=== PATIENT | male | born 1955 | race Caucasian/White ===

== ENCOUNTER 2023-07-15 06:38 | Inpatient (IN) | payer OTHER, SELFPAY ==
[2023-07-09 07:59] VITALS: BMI 34.5
[2023-07-15] VITALS (14 sets, daily range): BP systolic 113–157; BP diastolic 66–92; PULSE 75–92; RESP 9–18; TEMP 36.2–37.9; O2SAT 90–98; BMI 34.5
[2023-07-15] MEDS: LACTATED RINGERS 1,000 ML 42 ML IV ×2 (07:10→09:49)
--- NOTE | 2023-07-15 07:40 | PM.PREOP ---
Pre-operative Note Interval Note History & Physical reviewed/Exam performed by Physician: Yes Changes to H&P: No
[2023-07-15] MEDS: CEFAZOLIN 2 GM/100 ML PREMIX 100 ML IV ×3 (07:51→23:37)
--- NOTE | 2023-07-15 08:30 | SUR.OPER ---
Supine, head on gel donut. Arms padded with gel pads, tucked at sides, towel roll under shoulders. Safety belt at thigh. Legs uncrossed.Tape over legs.
[2023-07-15] MEDS: BUPIVACAINE 0.25% (PF) 60 ML, EPINEPHrine 0.15 MG INJ (08:46)
--- NOTE | 2023-07-15 10:47 | DI.RAD.S_ITS ---
PROCEDURE: XR CERVICAL SPINE 2V OR 3V INDICATIONS: C 4-5, C 5-6 ACDF TECHNIQUE: 2 operative C-arm view(s) of the cervical spine were acquired. COMPARISON: [facility], MR, MR CERVICAL SPINE WITHOUT CONTRAST, 05/29/2023, 10:20. FINDINGS: Operative C-arm imaging was utilized during ACDF at C4-C6 using anterior plate and screw fixation and interbody spacer material. No radiographic evidence of complications. IMPRESSION: Operative imaging utilized during cervical ACDF. Dictated by: Orville Hodge M.D. on 07/15/2023 at 14:18 Approved by: Orville Hodge M.D. on 07/15/2023 at 14:20
--- NOTE | 2023-07-15 11:10 | P.OP_ITS ---
Operative Date/Time/Diagnoses Date of procedure: 07/15/23 Time of procedure: 07:40 Pre-op diagnosis: 1. C4-5, C5-6 spinal stenosis 2. 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 C4-5, C5-6 anterior cervical diskectomy and fusion 2. C4-5, C5-6 anterior interbody cage placement 3. C4-5, C5-6 anterior instrumentation with plate and screw placement in C4, C5, C6 vertebrae 4. Utilization of microsurgical technique and operating microscope Same procedure as scheduled: Yes Indications: Patient has been having chronic neck pain and worsening cervical radiculopathy. Patient failed multiple conservative management with worsening pain weakness and numbness in his right upper extremity correlating with MRI showing severe C4-5 C5-6 right foraminal stenosis. Patient has been having difficulty performing activity of daily living. After discussing risks benefits of treatment options, patient elected proceed with surgery. Oracle Database Consultant: Marco Hudson Click Yes if Unassisted: No Anesthesia Type: General Operative Notes Closure Type: primary Specimen(s): none sent Prosthetic devices, grafts, tissues, transplants, or devices: Globus Extend Plate, Hedron C cages Estimated Blood Loss (mL): 5 Blood products transfused: none Procedure in detail: Patient was seen in the preoperative area. Risks and benefits of the surgery was discussed with the patient. Operative consent was obtained and placed in the chart. Patient was then taken to the operative room. Prophylactic antibiotic was given less than 0.5 hr prior to skin incision. General anesthesia was administered. Patient was placed into a supine position on her radiolucent table. Bilateral shoulders were taped down to allow proper C-arm imaging. Anterior cervical area was prepped and draped in a sterile fashion. Time-out was performed at this time. Using lateral C-arm imaging, the level between C4 and C6 was identified and marked on patient's neck. A oblique incision from midline towards medial border of sternocleidomastoid muscle was made. The platysma muscle was incised in line with skin incision. Metzenbaum scissor was used to develop the plane between the medial border of sternocleidomastoid d and the strap muscles medially. The carotid sheath and its contents were identified and protected behind the hand- held retractor during the entire case. The plane between the carotid sheath and strap muscles was developed with Metzenbaum scissors. Dissection was made down to the level of the anterior cervical fascia. Longus colli muscle was incised on the anterior aspect of vertebral bodies bilaterally from C4-C6. Spinal needle was placed into the C5-6 disc space and confirmed with lateral C-arm imaging. Using microsurgical technique and operative microscope, anterior cervical diskectomy was performed at C4-5 and C5-6 level. This was done by removing the disc material, removing the anterior and posterior osteophytes posterior longitudinal ligaments along with performing bilateral foraminotomies at both le vels. Patient was found to have moderate central and severe foraminal stenosis at both levels. Patient's stenosis was fully decompressed after decompression was completed. After the diskectomy was completed, 2 anterior interbody cages were obtained. The cages were packed with DBM bone grafting material. One cage each along with the bone grafting material was then packed into the interbody spaces from C4-C6 with one cage into each interbody level. After the cages were placed, the anterior cervical plate was stabilized to the C4-6 vertebrae using 2 screws at each each level. Total 6 screws were placed. After confirming placement of the hardware with AP and lateral C-arm imaging, the screws were locked into the plate using the locking mechanism and torque limiting screwdriver. After the hardware was placed and confirmed with AP and lateral C-arm imaging, the wound was irrigated with sterile normal saline. The platysma muscle and the subcutaneous tissue was closed with 2-0 Vicryl. The skin was closed with 4-0 Monocryl and Steri-Strips. Patient tolerated the procedure well. Patient was transferred recovery room in stable condition. There were no complications. Complications: none Post-operative Condition: stable Disposition: PACU Plan for aftercare: Admit to inpatient hospital
[2023-07-15] MEDS: HYDROMORPHONE 1 MG INJ IV ×3 (11:13→11:37)
[2023-07-15] MEDS: hydrOXYzine 50 MG/ML INJ 25 MG IM (11:16)
--- NOTE | 2023-07-15 11:29 | SUR.PHASEI ---
1104 - Received to PACU after general anesthesia. Airway patent, self maintained. Report from SHELBY Eugene and TREVON Ponce.
--- NOTE | 2023-07-15 11:53 | SUR.PHASEI ---
Report called to Rhonda.
--- NOTE | 2023-07-15 12:00 | SUR.PHASEI ---
Patient transferred to the floor by Magdiel Gates, with belongings bag.
[2023-07-15] MEDS: LACTATED RINGERS 1,000 ML 125 ML IV ×2 (13:00→21:50)
[2023-07-15] MEDS: OXYCODONE IR 5 MG TABLET PO ×3 (13:38→20:50)
--- NOTE | 2023-07-15 15:25 | PC.NURSE ---
Patient just worked with physical therapy and ambulated in the halls. Given 1 oxycodone and helpful for discomfort to anterior neck. Patient has a gauze with tegaderm to his anterior neck and a neck brace in place for protection. He has a friend that was visiting him. LR infusing at 125cc/hr and patient is doing well.
--- NOTE | 2023-07-15 15:26 | PT.IIE ---
Current Diagnoses Spinal stenosis, cervical region (07/15/23) Surgery Performed Operation Date: 07/15/23 07:45 Actual Procedures p C4-5, C5-6 ACDF with anterior instrumentation - Melvina Rodriguez MD Surgical History (Last Updated 07/09/23 @ 09:24 by Shannon Lennon, RN) History of mandibular surgery History of orthopedic surgery (2017) History of orthopedic surgery (2018) History of total right knee replacement (09/2014) S/P epidural steroid injection Medical History (Last Updated 07/09/23 @ 09:38 by Shannon Lennon RN) Acid reflux CAD (coronary artery disease) Cervical spinal stenosis Hearing loss History of cardioversion (12/2022) MEI (obstructive sleep apnea) PAF (paroxysmal atrial fibrillation) (~2017) Presence of Watchman left atrial appendage closure device (~06/2021) Seasonal allergies Thrombophilia Physical Therapy Inpatient Evaluation/Re-Eval M1 PT/OT-IP Prior Functional Status Start: 07/15/23 12:19 Freq: NEEDED Status: Active Protocol: Document 07/15/23 15:26 AW (Rec: 07/15/23 16:02 AW [id number]) Medical Review Prior Functional Status Medical History Reviewed No Communication No known deficits. Mobility and Gait Independent. Walks with dog 4- 5 miles per day. Activities of Daily Living and IADL's Independent Social History Household Members spouse Living Arrangements House Number of Floors (Floors) Two Floors Number of Stairs To Enter/Railing? 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 Spouse's sister will be available for 04/03 assist for a few weeks when pt goes home. M2 PT-IP Current Condition Start: 07/15/23 12:19 Freq: NEEDED Status: Active Protocol: Document 07/15/23 15:26 AW (Rec: 07/15/23 16:02 AW [id number]) Physical Therapy Current Condition Current Condition Evaluation Date 07/15/23 Treatment Diagnosis s/p C4-6 ACDF; impaired R knee ROM; impaired gait Onset Date 07/15/23 M3 PT-IP Subjective Start: 07/15/23 12:19 Freq: NEEDED Status: Active Protocol: Document 07/15/23 15:26 AW (Rec: 07/15/23 16:02 AW [id number]) Subjective Physical Therapy Visit Type Type Initial Evaluation Visit Start Time 14:58 Visit Stop Time 14:26 Total Visit Minutes 28 Physical Therapy Visit Comments Patient Comments Pt is willing to participate with PT Patient Goals Return home and back to regular activity such as walking his dog as soon as possible. Therapy Pain Assessment Pain When Pain Assessed During Mobility Pain Present Pain Present Pain Reported Location posterior neck Intensity 6 Scale Used Numeric (0 - 10) Pain Management Techniques Apply Cold,Timing of Activity with Medications M4 PT-IP Mobility and Gait Start: 07/15/23 12:19 Freq: NEEDED Status: Active Protocol: Document 07/15/23 15:26 AW (Rec: 07/15/23 16:02 AW [id number]) PT-Bed Mobility Assessment Supine to Sit Supine to Sit Independent Sit to Supine Sit to Supine Independent PT-Transfer Assessment Sit to and From Stand Sit to and from Stand Independent,Use of Upper Extremities Equipment Transfer Assistive Device None Orthotic/Prosthetic Devices or Brace: Yes Transfers Transfer Destination Bed,Chair Transfer Technique Stand Step Pivot Transfer Ability Level of Assist Independent Comments Mobility Comments Pt was found resting in bed. BP 108/87 HR 99 SpO2 93% on room air. PT educated pt on post op precautions and donning/doffing soft collar which is ordered for comfort. Pt transitions to sitting EOB and dons his own shorts before standing as PT cues cervical posture to limit excessive flexion and pt has good return demo. Pt stands and ambulates to the toilet, voiding in standing. He then walks 220 feet (first 100 feet with IV pole and remaining distance without AD). Pt has good stability in spite of R knee ROM limitations (see objective findings below). On return to the room, pt transfers to bedside chair and then back to bed without assist. Pt is left with call light handy, all needs in reach. BP 126/81 HR 102 following mobility. Gait Assessment Gait Gait Assistance Required: Independent Distance (Feet) 220 Assistive Devices Assistive Device None Orthotic/Prosthetic Devices or Brace: Yes Gait Deviations General Gait Pattern Lateral Trunk Lean,Wide Based Gait Factors Limiting Gait Function Factors Limiting Gait Function Limited Range of Motion Comments Gait Comments Pt's right knee flexes only to 10 degrees. Pt compensates well and gait is stable. Stair Climbing Assessment Evaluation Level of Assist On Stairs Independent Devices Stair Climbing Assistive Devices None Technique/Endurance Stair Climbing Direction Ascend and Descend Stair Climbing Technique Step to Step Number of Steps Climbed 3 Query Text: Stair Climbing Set # Repetitions (reps) 2 PT-Balance Assessment Sitting Balance and Reactions Static Sitting Balance Ability Normal Dynamic Sitting Balance Ability Normal Standing Balance and Reactions Static Standing Balance Ability Good Dynamic Standing Balance Ability Good Device Used no AD M5 PT-IP Objective Assessments Start: 07/15/23 12:19 Freq: NEEDED Status: Active Protocol: Document 07/15/23 15:26 AW (Rec: 07/15/23 16:02 AW [id number]) Orientation Orientation/Cognition Level of Alertness Alert Orientation Name,Day of Week,Place, Situation Language Function Ability No Deficits Noted Safety Awareness Understands Safety Issues Memory Description No Deficits Noted Gross Range of Motion Upper Extremity ROM Assessment Within Functional Limits Lower Extremity ROM Assessment Right Impaired Impairments R knee 0-10 only secondary to complicated orthopedic history including TKA and multiple infections/revisions. Strength Upper Extremity Strength Assessment Within Functional Limits Lower Extremity Strength Assessment Right Impaired Comments Strength Comments Pt has functional strength BLE but limited knee flexion RLE. Sensation Assessment Sensation Gross Sensation WNL Comments Sensation Comments Denies paresthesias in BUE. M6 PT-IP Treatment Start: 07/15/23 12:19 Freq: NEEDED Status: Active Protocol: Document 07/15/23 15:26 AW (Rec: 07/15/23 16:02 AW [id number]) Physical Therapy Treatment Education Brace Education [place],Patient Equipment Issued Equipment Type and Company Pt able to independently don and doff soft collar. Other Treatments Other Treatment Performed Education on soft collar limiting lower field of vision and need to compensate, especially on stairs. M7 PT-IP Assessment and Plan Start: 07/15/23 12:19 Freq: NEEDED Status: Active Protocol: Document 07/15/23 15:26 AW (Rec: 07/15/23 16:02 AW [id number]) PT Summary Assessment and Plan Potential Status of Condition at Evaluation Evolving Summary Impairments Pain,ROM Assessment Summary Ben Polanco is a 68 yo man seen for PT evaluation in the immediate postoperative setting following C4-5 C5-6 ACDF. PMH includes atrial fibrillation s/p Watchman implant, chronic low back pain , bilateral SI joint fusion, and R TKA complicated by multiple infections and revisions. PLOF: Pt is independent in all regards. He is primary caregiver for his spouse who has Parkinson's disease with Lewy body dementia. CLOF: Pt understands his postoperative precautions and demonstrates independent mobility in all aspects. He is able to manage his soft cervical collar without assist . He will have family assist at home for the next few weeks . PT recommends discharge home with such assist. No further acute PT needs. Frequency of Treatment Frequency Of Treatment Discharge Precautions Cervical Spine Precautions Soft Collar for Comfort,No Heavy Lifting,Log Roll Brace soft collar Recommendations To Nursing Amount of Assist Needed Standby Assistance Discharge Recommendations PT Discharge Recommendations Home with Assistance Transportation Needs at Discharge Private Vehicle
[2023-07-15] MEDS: ATORVASTATIN 20 MG TABLET 40 MG PO (16:48)
[2023-07-15] MEDS: ACETAMINOPHEN 325 MG TABLET 650 MG PO (19:31)
[2023-07-15] MEDS: hydrOXYzine pamoate 25 MG CAPSULE PO (20:50)
[2023-07-15] MEDS: SENNOSIDES 8.6 MG TABLET 17.2 MG PO (20:50)
[2023-07-15] MEDS: MONTELUKAST 10 MG TABLET PO (20:50)
[2023-07-15] MEDS: DOCUSATE 100 MG CAPSULE PO (20:50)
[2023-07-15] MEDS: HYDROMORPHONE 0.5 MG INJ IV (21:37)
[2023-07-16] VITALS: BP 114/57; PULSE 76; RESP 17; TEMP 36.7; O2SAT 94
[2023-07-16] MEDS: BENZOCAINE/MENTHOL 1 LOZ PKT 1 EACH PO ×2 (00:35→04:57)
[2023-07-16] MEDS: OXYCODONE IR 5 MG TABLET PO ×4 (00:54→10:07)
[2023-07-16] MEDS: hydrOXYzine pamoate 25 MG CAPSULE PO (03:06)
[2023-07-16] MEDS: ACETAMINOPHEN 325 MG TABLET 650 MG PO (03:06)
[2023-07-16] MEDS: HYDROMORPHONE 0.5 MG INJ IV (03:06)
[2023-07-16 04:51] VITALS: BP 118/60; PULSE 84; RESP 17; TEMP 37; O2SAT 97
[2023-07-16] MEDS: PANTOPRAZOLE DR 20 MG TABLET PO (05:07)
[2023-07-16] MEDS: LACTATED RINGERS 1,000 ML 125 ML IV (06:15)
--- NOTE | 2023-07-16 07:48 | PM.DS.1 ---
History of Present Illness History of Present Illness Date Patient Seen: 07/16/23 Time Patient Seen: 07:49 Chief complaint: Neck pain Narrative: Neck pain has been [id number]. Denies fever or chills. Patient able have some dinner last night. Patient drinking liquids without difficulty. No shortness of breath or chest pain. Discharge Providers Provider Date of admission: 07/15/23 06:38 Discharge Date: 07/16/23 Consults: 07/15/23 12:01 Consult to Occupational Therapy Evaluate & Treat Comment: Physician Instructions: Evaluate and treat Consult to Physical Therapy Evaluate & Treat Comment: Physician Instructions: Evaluate and Treat Discharge provider: Kalpesh Barroso PA-C Summary Hospital Course Discharge Diagnosis: 1. C4-5, C5-6 spinal stenosis 2. 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 C4-5, C5-6 anterior cervical diskectomy and fusion 2. C4-5, C5-6 anterior interbody cage placement 3. C4-5, C5-6 anterior instrumentation with plate and screw placement in C4, C5, C6 vertebrae 4. Utilization of microsurgical technique and operating microscope Same procedure as scheduled: Yes Indications: Patient has been having chronic neck pain and worsening cervical radiculopathy. Patient failed multiple conservative management with worsening pain weakness and numbness in his right upper extremity correlating with MRI showing severe C4-5 C5-6 right foraminal stenosis. Patient has been having difficulty performing activity of daily living. After discussing risks benefits of treatment options, patient elected proceed with surgery. Cupola Liner Helper: Marco Hudson Click Yes if Unassisted: No Anesthesia Type: General Operative Notes Closure Type: primary Specimen(s): none sent Prosthetic devices, grafts, tissues, transplants, or devices: Globus Extend Plate, Hedron C cages Estimated Blood Loss (mL): 5 Blood products transfused: none Patient admitted to the hospital for the above-mentioned procedure. Patient consented to the same. Patient underwent cervical fusion on July 15, 2023. Patient back in his room recovering well as in stable condition. Patient will work with physical therapy. Multimodal pain management. Discharge home today after physical therapy if safe for home environment. Status at Discharge Cognitive/behavioral status at discharge: at baseline, oriented Functional status at discharge: independent ambulation Overall status at discharge: patient is progressing back to baseline Exam Vital Signs (past 8 hours): - 07/16/23 00:00 07/16/23 04:51 Temperature 98.1 F 98.6 F Pulse Rate 76 84 Respiratory Rate 17 17 Blood Pressure 114/57 L 118/60 Pulse Oximetry 94 97 Oxygen Flow Rate 0 0 Oxygen Delivery Method Room Air Oxygen Flow Rate 0 Narrative Exam Narrative: 68-year-old male resting comfortably bed no apparent distress. Soft collar in place. Dressing is Clean, dry, intact.. Motor functions intact bilateral upper extremities. Const General: cooperative and comfortable Nutritional Appearance: average body habitus Orientation: alert Resp Effort & Inspection: normal respiratory effort and able to speak in complete sentences [facility] Medical History PAF (paroxysmal atrial fibrillation) (~2017) CAD (coronary artery disease) Thrombophilia Cervical spinal stenosis Acid reflux Seasonal allergies MEI (obstructive sleep apnea) Hearing loss History of cardioversion (12/2022) Presence of Watchman left atrial appendage closure device (~06/2021) Surgical History History of mandibular surgery History of total right knee replacement (09/2014) S/P epidural steroid injection History of orthopedic surgery (2018) History of orthopedic surgery (2016) Social History household members: spouse Smoking Status: Never smoker alcohol intake: former Discharge Assessment & Plan Assessment and Plan Assessment: Patient progressing as expected status post cervical fusion Plan of Treatment: Multimodal pain management Soft collar for comfort Limit bending, twisting, lifting Follow up in Orthopedics 2 weeks Discharge home today in stable condition after physical therapy if safe for home environment. Discharge Plan Discharge orders & Medications Discharge Orders: Discharge (Order); Ordered 07/16/23 Ordered By: Kalpesh Barroso Prescriptions: New acetaminophen 325 mg Tablet 650 mg PO Q6H PRN (Reason: Fever/Mild Pain (1-3)) Qty: 60 0RF oxycodone 5 mg Tablet 5 mg PO Q3H PRN (Reason: Pain, Moderate (4-6)) Qty: 40 0RF Rx Instructions: Take 5-10 mg every 3 hours as needed for pain hydroxyzine pamoate 25 mg Capsule 25 mg PO Q4HR PRN (Reason: Nausea And Vomiting) Qty: 20 0RF Continued atorvastatin 40 mg Tablet 40 mg PO QPM metoprolol succinate 50 mg Tablet Extended Release 24 Hr 50 mg PO DAILY aspirin 81 mg Tablet,Delayed Release (Dr/Ec) 81 mg PO DAILY cephalexin 500 mg Capsule 500 mg PO BID ibuprofen 200 mg Tablet 800 mg PO DAILY PRN (Reason: Pain) montelukast 10 mg Tablet 10 mg PO BEDTIME omeprazole 20 mg Tablet,Delayed Release (Dr/Ec) 20 mg PO DAILY Discontinued acetaminophen 500 mg Tablet 1,000 mg PO DAILY PRN (Reason: Pain) oxycodone 5 mg Tablet 5 mg PO BID Follow up/Referrals: Melvina Rodriguez MD [Physician] - (2 weeks as scheduled) Diet/Activity/Treatments Diet: Diet as Tolerated Activity: Limit bending, twisting, lifting, soft collar for comfort Skin/Wound/Dressing Care Report to your healthcare provider any signs of infection, such as:: chills, fever, night sweats, increased pain, unusual drainage and unusual redness Dressing: Keep dressing clean and dry Visit Report/Discharge Packet Instructions: DI for Prescription Opioid Use Stand Alone Forms: Patient Portal/API, Stroke Signs & Symptoms, Surgery Discharge Quality VTE Deep Vein Thrombosis/Pulmonary Embolism Present on Admission: No
[2023-07-16 08:00] VITALS: BP 127/75; PULSE 72; RESP 16; TEMP 36.2; O2SAT 98
[2023-07-16] MEDS: DOCUSATE 100 MG CAPSULE PO (08:19)
[2023-07-16 08:20] VITALS: BP 127/75; PULSE 92
[2023-07-16] MEDS: METOPROLOL ER 50 MG TABLET PO (08:20)
--- NOTE | 2023-07-16 08:55 | OT.IP.EVAL ---
Current Diagnoses Spinal stenosis, cervical region (07/15/23) Surgery Performed Operation Date: 07/15/23 07:45 Actual Procedures p C4-5, C5-6 ACDF with anterior instrumentation - Melvina Rodriguez MD Past Medical History (Last Reviewed 07/16/23 @ 07:51 by Kalpesh Barroso PA-C) Acid reflux CAD (coronary artery disease) Cervical spinal stenosis Hearing loss History of cardioversion (12/2022) MEI (obstructive sleep apnea) PAF (paroxysmal atrial fibrillation) (~2017) Presence of Watchman left atrial appendage closure device (~06/2021) Seasonal allergies Thrombophilia Surgical History (Last Reviewed 07/16/23 @ 07:51 by Kalpesh Barroso PA-C) History of mandibular surgery History of orthopedic surgery (2016) History of orthopedic surgery (2017) History of total right knee replacement (09/2014) S/P epidural steroid injection Occupational Therapy Inpatient Evaluation/Re-Eval M1 PT/OT-IP Prior Functional Status Start: 07/16/23 09:44 Freq: NEEDED Status: Active Protocol: Document 07/16/23 08:45 [facility] (Rec: 07/16/23 09:54 [facility] [id number]) Medical Review Prior Functional Status Medical History Reviewed No Communication No known deficits. Mobility and Gait Independent. Walks with dog 4- 5 miles per day. Activities of Daily Living and IADL's Independent Social History Household Members spouse Living Arrangements House Number of Floors (Floors) Two Floors Number of Stairs To Enter/Railing? 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 Spouse's sister will be available for 24/ assist for a few weeks when pt goes home. M2 OT-IP Current Condition Start: 07/16/23 09:44 Freq: Status: Active Protocol: Document 07/16/23 08:45 [facility] (Rec: 07/16/23 09:54 [facility] [id number]) Occupational Therapy Current Condition Current Condition Evaluation Date 07/16/23 Treatment Diagnosis S/P C4-5, C5-6 ACDF Diagnosis Onset Date 07/15/23 Post Operative Precautions Cervical Spine Precautions Soft Collar for Comfort,Soft Collar at all Times,Rigid Collar,No Heavy Lifting,Log Roll M3 OT- IP Subjective and Pain Start: 07/16/23 09:44 Freq: Status: Active Protocol: Document 07/16/23 08:45 [facility] (Rec: 07/16/23 09:54 [facility] [id number]) OT- Subjective Occupational Therapy Visit Type Type Initial Evaluation Visit Start Time 08:45 Visit Stop Time 09:07 Total Visit Minutes 22 Occupational Therapy Visit Comments Patient Comments Pt agreed to get dressed. Patient/Caregiver Goals TO go home. OT Pain Assessment Pain When Pain Assessed At Rest Pain Present Pain Present Pain Reported Location posterior neck Intensity 6 Scale Used Numeric (0 - 10) M4 OT- IP ADL's Start: 07/16/23 09:44 Freq: Status: Active Protocol: Document 07/16/23 08:45 [facility] (Rec: 07/16/23 09:54 [facility] [id number]) OT [id number] Comments OT Self-Feeding Comments Able to go over suggestions for eating and position while eating with the pt. OT ADL-Grooming General Evaluation Grooming Ability Independent OT ADL-Oral Care General Eval Oral Care Ability Independent Comments Oral Care Comments Educated to spit into a cup or hinge at his hips for oral care needs. OT ADL-Dressing General Eval Lower Body Dressing Ability Standby Assistance,Maximum Assistance Areas Needing Assistance Socks,Shoes Assistive Devices Dressing Assistive Devices Risk Investigator,Sock Aid Comments OT Dressing Comments Pt able to minimally bend at his right knee and was shown and practiced use of sock aid and orange picking supervisor for LB dressing needs. OT ADL-Toileting Comments OT Toileting Comments Pt states has been using the toilet. OT ADL-Bathing Comments OT Bathing Comments Not performed. M5 OT- IP IADL's Start: 07/16/23 09:44 Freq: Status: Active Protocol: Document 07/16/23 08:45 [facility] (Rec: 07/16/23 09:54 [facility] [id number]) OT-Instrumental Activities of Daily Living Home Safety Awareness Awareness of Need for Assistance at Home Good Awareness Ability to Problem Solve Emergency Able to Problem Solve Situations Home Safety Comments Pt's sister in law to assist. Medication Management Medication Management No Deficits Identified Money Management Money Management Caregiver Provides Assistance Meal Preparation Meal Preparation Caregiver Provides Assist Splitting Machine Feeder Splitting Machine Feeder Caregiver Provides Assist M6 OT- IP Functional Cognition Start: 07/16/23 09:44 Freq: Status: Active Protocol: Document 07/16/23 08:45 [facility] (Rec: 07/16/23 09:54 [facility] [id number]) Cognitive Factors Limiting Selfcare Function Cognitive Ability Level of Alertness Alert Patient Orientation Name,Age,Birthday,Month,Date, Year,Day of Week,Place, Situation Attention Span Ability Capable of Focused Attention, Capable of Sustained Attention Ability to Follow Commands Able to Follow Multi-Step Commands Memory Description No Deficits Noted Safety Awareness No Deficits Noted Cognitive Comments Cognitive Assessment Comments Pt intact. OT- Vision and Hearing OT- Hearing Assessment OT- Hearing Assessment WFL OT- Vision Assessment Visual Acuity WFL M7 OT- IP Mobility and Balance Start: 07/16/23 09:44 Freq: Status: Active Protocol: Document 07/16/23 08:45 [facility] (Rec: 07/16/23 09:54 [facility] [id number]) OT- Bed Mobility Assessment Sit to Supine Sit to Supine Assist Independent OT-Transfer Assessment Sit to and From Stand Sit to and from Stand Independent Transfers Transfer Ability Independent Technique Transfer Destination Bed Transfer Technique Stand Step Pivot Devices Transfer Assistive Devices None Comments Mobility Comments Pt able to move independently in the room. OT- Balance Assessment Sitting Balance and Reactions Static Sitting Balance Ability Normal Dynamic Sitting Balance Ability Good Standing Balance and Reactions Static Standing Balance Ability Good Dynamic Standing Balance Ability Good M9 OT- IP Assessment and Plan Start: 07/16/23 09:44 Freq: Status: Active Protocol: Document 07/16/23 08:45 [facility] (Rec: 07/16/23 09:54 [facility] [id number]) OT Summary Assessment and Plan Potential Rehabilitation Potential Excellent Analytic Complexity at Evaluation Low Summary OT Impairments Pain,Dressing,Bathing Progress Towards Goals Progressing Toward Goals,Safe For Discharge Assessment Summary Pt low complexity and main barriers are pain and LB dressing due to limited bending of his right knee. Able to show pt use of orange picking supervisor and sock aid to assist for his needs. Pt's sister in law to assist as his has Parkinson's. Pt looking to go home today. Goals Dressing Goal Independent,Risk Investigator,Sock Aid Bathing Goal Independent Toilet Transfer Goal Independent Shower Transfer Goal Independent Days to Meet Goals 1 Frequency of Treatment Frequency Of Treatment Discharge Treatment Plan OT Treatment Plan ADL Training,Functional Mobility,Patient/Family Education,Discharge Planning Discharge Recommendations OT Discharge Recommendations Home with Assistance Home Equipment Needs sock aid, orange picking supervisor Transportation Needs at Discharge Private Vehicle
[2023-07-16 09:52] VITALS: BP 129/80; PULSE 80
--- NOTE | 2023-07-16 11:26 | PC.NURSE ---
Pt alert and oriented, tolerating post-op course, talking about d/c. Friend coming to drive pt home. Pain meds as needed, d/c instructions given. Iv d/c'd per nimesh.l
--- NOTE | 2023-07-16 16:01 | CM.DANOTE ---
Reviewed EMR and team rounds for pt's medical status and initial anticipated home medical needs. Pt had discharged prior to this [employer]'s ability to meet with him in person. Payor: [facility] Attending: Dr. Rodriguez Pt is a 68 year-old M with a hx of chronic neck pain and worsening cervical radiculopathy admitted on 07/15/23 for a planned cervical fusion surgery, post-op day 1. Per Ortho, pt is progressing back toward baseline, plan is d/c home today with Ortho f/u, family assistance. Pt is the primary cg for his who has Parkinson's and Lewy Body Dementia, her sister is here for the next 2-weeks in order to assist with caregiving needs for both of them for the next 2-weeks. No further DCP needs identified at this time. Discharge Planning/Care Management CM Discharge Assessment Start: 07/16/23 15:55 Freq: Status: Discharge Protocol: Document 07/16/23 15:56 [facility] (Rec: 07/16/23 16:01 [facility] [id number]) Discharge Planning Assessment Assigned Dish Person RUBIA Montaño Advance Directives? No History Provided By Medical Record Expected Length of Stay 1 Has Patient been admitted in last 30 No days? Prior Living Arrangements House Household Members spouse Type of transporation used prior to Drives own vehicle admit Independent with ADL's Yes Is patient alert and oriented? Yes Comment N/A Caregiver for Another Yes: Main cg for who has Parkinson's and Lewy Body Dementia. Comment No d/c needs identified at this time. Barriers to Discharge No Discharge Plan Home Transportation Arrangement Family Referrals Initiated None needed Comment Pt d/c'd prior to this [employer]'s ability to assess him in person. Review Status In Process Please Provide Date Initial DC 07/16/23 Assessment Was Performed Pre-Anesthesia Assessment Start: 07/09/23 07:59 Freq: Status: Discharge Protocol: Document 07/09/23 07:59 [facility] (Rec: 07/09/23 09:35 [facility] [id number]) Pre-Anesthesia Assessment Preferred Name Keith Patient Information Reviewed Via Phone Assessment Assessment Completed With Patient Diagnostic Results BMP/CMP,CBC,EKG Comment Outside labs/EKG scanned Primary Care Provider MD Sergey Seen Specialist in Last 12 Months Yes Specialist Seen Director [employer],Orthopedist Primary Language Korean Vice President Of Talent Management Required No Height 175.26 cm Weight 106.141 kg Body Mass Index (BMI) 34.5 Hearing Ability Hearing Impaired Visual Assist Magnifying Glass Dentition Type Partial- Upper Barriers to Learning None Hx Anesthesia Reactions No Hx Family Anesthesia Reaction No Hx Malignant Hyperthermia No Hx Blood Transfusions No Anesthesia Review Requested No 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 No Does patient have RICHARDSON/SOB No Hx Sleep Apnea Yes: Boarderline after weight loss, no CPAP Currently Taking a Beta [place] Yes: Metoprolol Hx Chest Pain No Hx SOB No Hx Syncope or Dizziness No Anti-Coagulant Therapy Yes: ASA 81mg daily-advised to hold 7 days per surgeon office Has a Director [employer] Services Yes: Last visit 03/29/23 Director [employer] name Dr. Aranda @ [facility] [phone] Cardiac Testing No Hx Pacemaker/ICD No Pacemaker Rep Required? No Cardiac Clearance Received Not Applicable Comment Watchman device implant Additional comment Cardiac records scanned, walks 5 miles daily Diet Type At Home Regular Dysphagia No Gastrointestinal Symptoms Reflux Chronic UTI No Urinary Catheter Present No Hx Urinary Self Catheterization No Diabetes No HgbA1C 5.4 Date 12/31/22 Hx Drug Resistant Organism No Presence of External or Internal Medical Yes: Cardiac watchman, knee Devices prosthesis, SI joint pins, right facial pins Received a COVID vaccine? Yes Received all doses? Yes Marital Status Lives With spouse Current Living Arrangements House Number of Floors (Floors) Two Floors Number of Stairs To Enter/Railing? 3 Support System Spouse Does the Patient Have Assistance After Yes Surgery Patient Discharge Plan Description Return Home Comment Pt advised 2 day length of stay per surgeon Feels Safe in Current Environment Yes Been Physically Hurt or Threatened By a No Person in Current Environment Do you have thoughts of harming yourself None or others? Are you currently considering suicide? No Do you have a plan to hurt yourself or No Plan others? Do You Have Any Spiritual Beliefs That No May Affect Your HC Choices? Do You Have Any Cultural Practices That No May Affect Your HC Choices? Comment Episcopal Who Can We Speak to About Patient's Care Family, friends Identifying Code for Release of Patient Declines to issue Information Health Care Proxy/Next of Kin Brina () Health Care Proxy Emergency Contact Name Brina () Emergency Contact Advance Directives? No Power of Conference Services Manager No PAC Instructions Medications to take/avoid, Nasal antibiotic,No ETOH/ petroleum product on skin DOS, NPO,Pre-surgical wash,Sensory aids,Sturdy shoes/comfortable clothes,Do not bring valuables and remove jewelry
== END 2023-07-16 10:25 | disposition home or self-care (01) | DRG 473 ==
PROVIDERS: Admitting Provider Orthopaedic Surgery Orthopaedic Surgery of the Spine; Referring Provider Orthopaedic Surgery Orthopaedic Surgery of the Spine; Visit Provider Orthopaedic Surgery Orthopaedic Surgery of the Spine
PROC: 0RG20A0 Fusion of 2 or more Cervical Vertebral Joints with Interbody Fusion Device, Anterior Approach, Anterior Column, Open Approach (ICD-10-PCS; principal; 2023-07-15 07:45)
DX: M48.02 Spinal stenosis, cervical region (principal); M47.22 Other spondylosis with radiculopathy, cervical region; E78.5 Hyperlipidemia, unspecified; I10 Essential (primary) hypertension; K21.9 Gastro-esophageal reflux disease without esophagitis
CPT/HCPCS: 72040; 76000; 97161; 97165; 97535; C1713; J0171; J0330; J0690; J1170; J2250; J2405; J2704; J3010; J3410

== ENCOUNTER 2023-11-13 07:34 | Inpatient (IN) | payer MEDICARE, SELFPAY ==
[2023-07-15 06:52] VITALS: BMI 34.5
[2023-11-04 08:46] VITALS: BMI 36.1
[2023-11-13] VITALS (10 sets, daily range): BP systolic 112–150; BP diastolic 52–87; PULSE 65–99; RESP 10–16; TEMP 36–38.1; O2SAT 92–98; BMI 36.1
--- NOTE | 2023-11-13 | DI.RAD.S_ITS ---
PROCEDURE: XR LUMBAR SPINE 2-3V INDICATIONS: TLIF L4-5, L5-S1 TECHNIQUE: Two spot fluoroscopic intraoperative images of the lower lumbar spine COMPARISON: [facility], [place], CT LUMBAR SPINE WITHOUT CONTRAST, 10/31/2023, 8:54. FINDINGS: Two spot fluoroscopic intraoperative images demonstrate postsurgical changes from posterior fixation at L4 through S1 with bilateral pedicle screws and interbody rods as well as disc spacers. IMPRESSION: Intraoperative images demonstrate posterior fixation hardware at L4 through S1. Approved by: Jamel Demarco M.D. on 11/13/2023 at 20:51
[2023-11-13] MEDS: VANCOMYCIN 1,500 MG/300 ML PIGGYBACK 200 MG IV ×2 (07:50→16:28)
[2023-11-13] MEDS: LACTATED RINGERS 1,000 ML 42 ML IV ×2 (07:55→10:50)
[2023-11-13] MEDS: ACETAMINOPHEN 325 MG TABLET 975 MG PO (08:21)
[2023-11-13] MEDS: GABAPENTIN 300 MG CAPSULE PO (08:22)
--- NOTE | 2023-11-13 08:23 | SUR.PREOP ---
awaiting Dr Rodriguez's arrival
--- NOTE | 2023-11-13 08:40 | PM.PREOP ---
Pre-operative Note Interval Note History & Physical reviewed/Exam performed by Physician: Yes Changes to H&P: No
--- NOTE | 2023-11-13 09:20 | SUR.OPER ---
Prone on spine table, head in foam head support, padded chest and pelvic supports, gel pad at knees, lower legs supported by pillows; nipples, genitalia and toes free of pressure, arms secured on foam padded arm boards at <90 degrees abduction. Tape over blanket at thigh secured to table.
[2023-11-13] MEDS: BUPIVACAINE 0.25% (PF) 60 ML, EPINEPHrine 0.15 MG INJ (09:27)
[2023-11-13] MEDS: BUPIVACAINE LIPOSOME 266 MG/20 ML VIAL INJ (09:27)
--- NOTE | 2023-11-13 12:49 | P.OP_ITS ---
Operative Date/Time/Diagnoses Date of procedure: 11/13/23 Time of procedure: 08:40 Pre-op diagnosis: 1. L4-5, L5-S1 spondylosis with radiculopathy 2. L4-5, L5-S1 foraminal stenosis Post-op diagnosis: same Procedure & Clinicians Procedure: 1. L4-5, L5-S1 Postero-lateral and posterior interbody fusion 2. L4-5, L5-S1 interbody cage placement. 3. L4-5, L5-S1 decompressive laminectomy with bilateral facetecomies 4. L4-5, L5-S1 Posterior segmental instrumentation 5. [place]land of bone marrow from iliac crest 6. Utilization of microsurgical technique and operating microscope 7. Utilization of robotic assisted navigation Same procedure as scheduled: Yes Indications: Patient has been having chronic back pain and worsening lumbar radiculopathy. Patient has an MRI showing significant degenerative disc foraminal stenosis and facet arthropathy causing significant back pain as well as radiculopathy in bilateral lower extremity. Patient failed multiple conservative management with worsening pain weakness and numbness in his lower extremity. Patient has been having difficulty performing activity of daily living. After discussing risks benefits of treatment options, patient elected proceed with surgery. Surgeon: Melvina Rodriguez Mainframe Programmer Analyst: Nirmala Mead Click Yes if Unassisted: No Anesthesia Type: General Operative Notes Closure Type: primary Prosthetic devices, grafts, tissues, transplants, or devices: Globus CREO MIS screws, Rise cages Applied: catheter Estimated Blood Loss (mL): 150 Blood products transfused: none Procedure in detail: Patient was seen in the preoperative area. Risks and benefits of the surgery was discussed with the patient. Informed consent was obtained from the patient and placed in the chart. Surgical site was marked. Patient was taken to the operative room. General anesthesia was administered. Prophylactic antibiotic was given to the patient less than 30 min before the incision was made. Patient was placed into a prone position on the Rajendra table. Patient's back was then prepped and draped in the sterile fashion. Time-out was performed at this time. After patient was prepped and draped, patient's PSIS was palpated and marked bilaterally. Small 1 cm incision was made over the PSIS for placement of the reference probes. Two trocar was placed into the PSIS 1 on each side. The reference probe was attached to the trocar of the reference apparatus. At this time the C-arm imaging was used to confirm AP and lateral of L4-L5, L5- S1 vertebrae and merged the C-arm imaging using the Alkymos robotic navigation system with the CT of the lumbar spine. After successful merging was completed and confirmed, skin marker was used to raul out the skin incision using the Alkymos robotic arm. Bilateral incision was made at this time. Pre templated trajectory was used and guided using the Alkymos robotic navigation system for bilateral L4, L5, S1 pedicle screw placement. This was done by using the robotic arm to guide the high-speed bur to make a cortical entry point. Next a drill was placed also using the robotic arm and guided using the navigation system drilling partially through bilateral L4, L5 and S1 pedicles. Next L4, L5, S1 pedicle screws it was pre templated and measured was placed onto the power commercial trailer truck driver and inserted into the pedicles bilaterally. After all 6 screws were placed C-arm imaging was taken of both AP and lateral to confirm the placement. Excellent placement of the screws were confirmed and a matched precisely with the pre planned screw placement using the navigation system. MARs retractor was inserted using mBloxivation guidence. Globus MARS retractors was placed inside the incision and docked onto the L4 and L5 lamina. Using microsurgical technique and operating microscope, a L4, L5 laminectomy and L4-5, L5-S1 facetectomy was performed using a Kerrison rongeur. The laminectomy and facetectomy was performed in order to decompress patient's cauda equina as well as the nerve roots exiting at the L4-5, L5-S1 level. Patient was found have severe lateral recess and neural foramen stenosis which was fully decompressed after the laminectomy facetectomy. More than 75% of the facets were removed during the process of decompression rendering L4-5, L5-S1 level grossly unstable and required a fusion procedure at the same time. The disc space at L4-5, L5-S1 was identified, and a total diskectomy was performed at L4-5, L5-S1 level. The endplates were decorticated using a rasp and shaver. The total diskectomy and decortication was performed at L4-5, L5-S1 level in order to to accomplish a L4- 5, L5-S1 fusion. The local bone from the laminectomy and facetectomy was saved for local bone grafting. After the total diskectomy and decortication was completed, Trifecta bone graft material was combined with local bone that was harvested earlier. At this time, a separate skin is incision was made over the iliac crest. A Jamshidi needle was inserted into the iliac crest through a separate skin incision. 5 cc of bone marrow aspiration was obtained through the separate skin incision using a Jamshidi needle from the iliac crest. The bone marrow aspiration was combined with local bone and the Trifecta bone grafting material. The bone grafting material was placed into the L4-5, L5-S1 interbody space along with a expandable cage. The cage was expanded to its maximum height using the torque limiting screwdriver. The disc preparation as well as the cage insertion were also performed under navigation guidance. After the cage was placed, AP and lateral C-arm imaging was taken to confirm placement of the cage and excellent position was confirmed. Globus MARS retractor was inserted and docked onto the L4-5, L5-S1 posterolateral gutter on the right side. Using the power drill, posterior- lateral decortication was performed at L4-5, L5-S1 level until bleeding cortical bone was identified. The remaining bone grafting material was placed into the L4-5, L5-S1 posterior lateral gutter he order to accomplish posterolateral fusion at the L4-5, L5-S1 level. At this time the tulips were attached to the L4, L5, S1 pedicle screw shanks. After measuring the length of the rods, they were inserted into the tulips of the pedicle screws and locked in place using locking caps and torque limiting screwdriver bilaterally. Total 6 caps and 2 titanium rods was used in order to complete the posterior instrumentation construct. After all the hardware was placed, and confirmed with AP and lateral C-arm imaging, the wound was then irrigated with sterile normal saline and packed with Ray-Charlie gauze for 3 min to accomplish hemostasis. After the gauze was removed the deep fascia was closed with #1 Vicryl suture. The subcutaneous layer was closed with 2-0 Vicryl. The skin was closed with skin nichole. Patient tolerated the procedure well. There were no complications. Neuro monitoring system was used to monitor patient's neurologic status throughout entire procedure. There was no disturbance of the neural monitoring signals throughout the case. The Operation could not have been safely performed without compromising the technical result or length of the procedure, without the assistance of a skilled certified ophthalmic surgical assistant. The certified ophthalmic surgical assistant was medically necessary for proper positioning, retraction and manipulation of instruments, proper exposure, surgical preparation, and manipulation of tissue. Complications: none Post-operative Condition: stable Disposition: PACU Plan for aftercare: Admit to inpatient hospital
[2023-11-13] MEDS: ONDANSETRON 4 MG/2 ML INJ IV (13:01)
[2023-11-13] MEDS: hydrOXYzine 50 MG/ML INJ 25 MG IM (13:02)
[2023-11-13] MEDS: OXYCODONE IR 5 MG TABLET PO ×2 (13:02→13:30)
[2023-11-13] MEDS: ACETAMINOPHEN 325 MG TABLET 650 MG PO ×2 (13:55→21:21)
[2023-11-13] MEDS: LACTATED RINGERS 1,000 ML 125 ML IV ×2 (13:55→23:46)
[2023-11-13] MEDS: HYDROMORPHONE 0.5 MG INJ IV ×2 (13:55→18:10)
--- NOTE | 2023-11-13 15:05 | PT-IP ANOTE ---
checked on pt and pt refused PT. stated that he is not feeling good to move with PT.
[2023-11-13] MEDS: OXYCODONE IR 10 MG TABLET PO ×3 (16:27→23:21)
[2023-11-13] MEDS: ATORVASTATIN 20 MG TABLET 40 MG PO (16:27)
[2023-11-13] MEDS: DOCUSATE 100 MG CAPSULE PO (20:07)
[2023-11-13] MEDS: MONTELUKAST 10 MG TABLET PO (20:07)
[2023-11-13] MEDS: SENNOSIDES 8.6 MG TABLET 17.2 MG PO (20:07)
[2023-11-14 00:32] VITALS: BP 114/64; PULSE 74; RESP 16; TEMP 36.2; O2SAT 93
[2023-11-14] MEDS: HYDROMORPHONE 0.5 MG INJ IV (01:15)
--- NOTE | 2023-11-14 01:42 | PC.NURSE ---
Patient is alert and oriented. Breath sounds CTA with RA sat of 93%. HRR w/BP of 143/68. Denies nausea. BT hypoactive but states he has passed some flatus. Indwelling catheter is patent; urine is clear, pale yellow. Is able to turn himself in bed but has not yet been out of bed. Dressings to back are intact with shadow drainage. Has chronic tingling/numbness in right knee related to history of 5 knee surgeries with resulting nerve damage (per patient); no new or changed numbness. CMS is intact. Back pain persistent at 6-7/10 and was medicated with oxycodone x 2 and tylenol x1 so medicated with IV Dilaudid and now appears to be asleep. Wearing bilateral calf SCD's. Fall risk score is high and bed alarm is activated.
[2023-11-14] MEDS: ACETAMINOPHEN 325 MG TABLET 650 MG PO ×3 (04:26→18:13)
[2023-11-14] MEDS: OXYCODONE IR 10 MG TABLET PO ×6 (04:27→21:15)
[2023-11-14 05:34] VITALS: BP 117/67; PULSE 80; RESP 16; TEMP 36.4; O2SAT 96
[2023-11-14] MEDS: PANTOPRAZOLE DR 20 MG TABLET PO (05:53)
[2023-11-14 06:35] LABS: Hematocrit 32.8 % (41-53); Hemoglobin 11.3 g/dL (13.5-17.5)
--- NOTE | 2023-11-14 06:54 | P.PN_ITS ---
Subjective Subjective Date Patient Seen: 11/14/23 Time Patient Seen: 06:54 Interval history: Pt sitting up in bed, watching TV. C/o low back pain, worse w/ movement, denies leg pain. Has not worked w/ PT yet. His has Parkinson's and will not be able to help him after surgery, but he has someone staying at their house until Saturday, and then after that has someone helping about 2 hours a day. Would be interested in [facility] care, if possible. Exam Vital Signs (past 8 hours): - 11/14/23 00:32 11/14/23 05:34 Temperature 97.2 F L 97.6 F Pulse Rate 74 80 Respiratory Rate 16 16 Blood Pressure 114/64 117/67 Pulse Oximetry 93 96 Oxygen Flow Rate 0 0 Oxygen Delivery Method Room Air Oxygen Flow Rate 0 Narrative Exam Narrative: 5/5 strength in hip flexors, quadriceps, hamstrings, DF, PF, EHL bilaterally. 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 Sensation to light touch intact in BLE, calves soft and compressible. Dressing placed intraoperatively w/ moderate bloody dressing on right, otherwise intact. Adequate urine output, clear, yellow. Objective Labs 11/14/23 06:10 Labs: Laboratory Results - last 24 hr 11/14/23 06:10 Hgb 11.3 L Hct 32.8 L PFSH Medical History PAF (paroxysmal atrial fibrillation) (~2017) CAD (coronary artery disease) Thrombophilia Cervical spinal stenosis Acid reflux Seasonal allergies MEI (obstructive sleep apnea) Hearing loss History of cardioversion (12/2022) Presence of Watchman left atrial appendage closure device (~06/2021) Surgical History (Updated 11/14/23 @ 06:57 by Nirmala Mead PA-C) Hx of fusion of cervical spine (07/15/23) History of mandibular surgery History of total right knee replacement (09/2014) S/P epidural steroid injection History of orthopedic surgery (2018) History of orthopedic surgery (2016) Social History household members: spouse Smoking Status: Never smoker alcohol intake: former Assessment & Plan Post-op Assessment and plan (1) S/P lumbar fusion: Assessment and Plan narrative: 1) D/c Hernandez today. 2) Work w/ PT. Pt states no assistive devices at baseline despite R knee issues. Full weightbearing. 3) D/c IV hydromorphone in anticipation of homegoing tomorrow. 4) HHRN for help at home - will alert CM. 5) Mechanical VTE prophylaxis w/ SCDs at all times when in bed. 6) Hopeful d/c home tomorrow w/ friends/family and home health. Dressing change prior to d/c. Postoperative Procedures: Procedures Operation Date: 11/13/23 08:45 Actual Procedure Side Surgeon p L4-5, L5-S1 TLIF with posterior instrumentation -Robot Melvina Rodriguez MD Postoperative day: 1
[2023-11-14] MEDS: DOCUSATE 100 MG CAPSULE PO ×2 (07:50→21:15)
[2023-11-14 08:00] VITALS: BP 108/71; PULSE 67; RESP 18; TEMP 36.6; O2SAT 96
--- NOTE | 2023-11-14 08:27 | OT.IP.EVAL ---
Current Diagnoses Other spondylosis with radiculopathy, lumbar region (11/13/23) Spinal stenosis, lumbar region without neurogenic claudication (11/13/23) Arthrodesis status (11/13/23) Surgery Performed Operation Date: 11/13/23 08:45 Actual Procedures p L4-5, L5-S1 TLIF with posterior instrumentation -Robot - Melvina Rodriguez MD Past Medical History (Last Reviewed 07/16/23 @ 07:51 by Kalpesh Barroso PA-C) Acid reflux CAD (coronary artery disease) Cervical spinal stenosis Hearing loss History of cardioversion (12/2022) MEI (obstructive sleep apnea) PAF (paroxysmal atrial fibrillation) (~2017) Presence of Watchman left atrial appendage closure device (~06/2021) Seasonal allergies Thrombophilia Surgical History (Last Updated 11/04/23 @ 09:02 by Shannon Lennon RN) History of mandibular surgery History of orthopedic surgery (2016) History of orthopedic surgery (2017) History of total right knee replacement (09/2014) Hx of fusion of cervical spine (07/15/23) S/P epidural steroid injection Occupational Therapy Inpatient Evaluation/Re-Eval M1 PT/OT-IP Prior Functional Status Start: 11/14/23 11:19 Freq: NEEDED Status: Active Protocol: Document 11/14/23 08:27 [facility] (Rec: 11/14/23 11:49 [facility] [id number]) Medical Review Prior Functional Status Medical History Reviewed Yes Diet/Fluid Consistency Regular Communication WNLs Mobility and Gait Occ uses cane or RW d/t right LE changes and lack of ROM after many surgeries. 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 He states that she does not have to use an AD but has memory, other cognitive and compliance challenges and needs 24 hour care. Her daughter is looking after her while he is in the hospital. Pt uses LB dressing equipment Social History Household Members spouse Living Arrangements House Number of Floors (Floors) Two Floors Number of Stairs To Enter/Railing? 4 steps with 2 rails to enter and flight of steps with left rail ascend to second floor Home Environment High Toilet,Walk in Shower Home Equipment Front Wheel Walker,Straight Cane,Administration Assistant,Sock Aid,Grab Bars In Shower Employment Status Retired Additional Social History Comment Bidet M2 OT-IP Current Condition Start: 11/14/23 11:19 Freq: Status: Active Protocol: Document 11/14/23 08:27 [facility] (Rec: 11/14/23 11:49 [facility] [id number]) Occupational Therapy Current Condition Current Condition Evaluation Date 11/14/23 Treatment Diagnosis S/P L4-5,L5-S1 TLIF Diagnosis Onset Date 11/13/23 Post Operative Precautions Lumbar Precautions Log Roll,No Twisting,Limit Bending,Lifting Restriction of 10 lbs,Gait Belt above Incisional Area M3 OT- IP Subjective and Pain Start: 11/14/23 11:19 Freq: Status: Active Protocol: Document 11/14/23 08:27 [facility] (Rec: 11/14/23 11:49 [facility] [id number]) OT- Subjective Occupational Therapy Visit Type Type Initial Evaluation Visit Start Time 08:27 Visit Stop Time 09:07 Occupational Therapy Visit Comments Patient Comments Pt agreed to get up. Patient/Caregiver Goals TO go home. OT Pain Assessment Pain When Pain Assessed At Rest Pain Present Pain Present Pain Reported Location Back Intensity 5 Scale Used Numeric (0 - 10) M4 OT- IP ADL's Start: 11/14/23 11:19 Freq: Status: Active Protocol: Document 11/14/23 08:27 [facility] (Rec: 11/14/23 11:49 [facility] [id number]) OT [id number] General Evaluation Self-Feeding Ability Independent OT ADL-Grooming General Evaluation Grooming Ability Standby Assistance Areas Needing Assistance Retrieving/Set-up of Grooming Items Comments OT Grooming Comments Able to do while standing with FWW. OT ADL-Oral Care General Eval Oral Care Ability Standby Assistance Comments Oral Care Comments VC to hinge at his hips to spit into the sink or just spit into a cup to best follow his back precautions. OT ADL-Dressing General Eval Lower Body Dressing Ability Standby Assistance Comments OT Dressing Comments Educated on use of manometer technician to nicolás his underwear over his feet. Pt states does also use a sock aid at home especially since his recent fall two weeks ago. OT ADL-Toileting Comments OT Toileting Comments Pt has a bidet to use at home to assist with toileting needs and pt re-educated of standing to wipe to best follow his back precautions. M5 OT- IP IADL's Start: 11/14/23 11:19 Freq: Status: Active Protocol: Document 11/14/23 08:27 [facility] (Rec: 11/14/23 11:49 [facility] [id number]) OT-Instrumental Activities of Daily Living Deficits IADL Deficits Identified Deficits Home Safety Awareness Awareness of Need for Assistance at Home Good Awareness Ability to Problem Solve Emergency Able to Problem Solve Situations Medication Management Medication Management No Deficits Identified Money Management Money Management No Deficits Identified Meal Preparation Meal Preparation Comments Initially pt will need assist. Pt has ordered a 4ww for able move items more easier. Welding Setter Welding Setter Caregiver Provides Assist M6 OT- IP Functional Cognition Start: 11/14/23 11:19 Freq: Status: Active Protocol: Document 11/14/23 08:27 [facility] (Rec: 11/14/23 11:49 [facility] [id number]) Cognitive Factors Limiting Selfcare Function Cognitive Ability Level of Alertness Alert Patient Orientation Name,Age,Birthday,Month,Date, Year,Day of Week,Place, Situation Attention Span Ability Capable of Focused Attention, Capable of Sustained Attention Ability to Follow Commands Able to Follow Multi-Step Commands Cognitive Comments Cognitive Assessment Comments Intact OT- Vision and Hearing OT- Hearing Assessment OT- Hearing Assessment WFL OT- Vision Assessment Visual Acuity Glasses For Reading M7 OT- IP Mobility and Balance Start: 11/14/23 11:19 Freq: Status: Active Protocol: Document 11/14/23 08:27 [facility] (Rec: 11/14/23 11:49 [facility] [id number]) OT- Bed Mobility Assessment Supine to Sit Supine to Sit Assist Standby Assistance Sit to Supine Sit to Supine Assist Standby Assistance OT-Transfer Assessment Sit to and From Stand Sit to and from Stand Standby Assistance Transfers Transfer Ability Standby Assistance Technique Transfer Destination Bed,Chair Transfer Technique Stand Step Pivot Devices Transfer Assistive Devices Front Wheeled Walker Comments Mobility Comments SBA with all mobility needs with good safety. OT- Balance Assessment Sitting Balance and Reactions Static Sitting Balance Ability Normal Dynamic Sitting Balance Ability Good Standing Balance and Reactions Static Standing Balance Ability Good Dynamic Standing Balance Ability Good M8 OT- IP Objective Assessments Start: 11/14/23 11:19 Freq: Status: Active Protocol: Document 11/14/23 08:27 [facility] (Rec: 11/14/23 11:49 [facility] [id number]) OT Gross Range of Motion Upper Extremity Range of Motion ROM Impairments WFL for needs OT Strength Comments Strength Comments WFL for needs OT- Coordination Assessment Upper Extremity Finger to Nose Test Within Functional Limits Finger Tapping Test Left UE Impaired Comments Coordination Comments Slightly off with Left hand M9 OT- IP Assessment and Plan Start: 11/14/23 11:19 Freq: Status: Active Protocol: Document 11/14/23 08:27 [facility] (Rec: 11/14/23 11:49 [facility] [id number]) OT Summary Assessment and Plan Potential Rehabilitation Potential Good Analytic Complexity at Evaluation Low Summary OT Impairments Pain,Balance,Functional Mobility,Dressing,Toileting, Bathing Progress Towards Goals Progressing Toward Goals Assessment Summary Pt low complexity and main barriers are pain and doing well at this time. Pt to go home when medically stable. Goals Dressing Goal Independent,Administration Assistant,Sock Aid Toileting Goal Independent Bathing Goal Independent Toilet Transfer Goal Independent Shower Transfer Goal Independent Days to Meet Goals 2 Frequency of Treatment Frequency Of Treatment Once a Day Treatment Plan OT Treatment Plan ADL Training,Functional Mobility,Patient/Family Education,Discharge Planning Other Treatment Recommendations and Next To try use of 4ww for ADL Treatment Focus needs. Discharge Recommendations OT Discharge Recommendations Home with Assistance Other Discharge Recommendations Pt will benefit from outpt PT once cleared by surgeon for balance needs. Transportation Needs at Discharge Private Vehicle
--- NOTE | 2023-11-14 09:39 | DI.CT.S_ITS ---
PROCEDURE: CT CERVICAL SPINE WO CON INDICATIONS: neck pain, upper extremity radiculopathy TECHNIQUE: Noncontrast 3 mm thick sections acquired from the skull base to the T4 level. Sagittal and coronal reformats were then constructed. For radiation dose reduction, the following was used: automated exposure control, adjustment of mA and/or kV according to patient size. COMPARISON: [facility], MR, MR CERVICAL SPINE WITHOUT CONTRAST, 05/29/2023, 10:20. [facility] [place], CR, XR CERVICAL SPINE 2 OR 3 VIEWS, 09/05/2023, 12:04. FINDINGS: Image quality: Diagnostic, with note made of motion artifact. Bones: Postoperative changes are seen, with an anterior cervical spine fusion plate at the T4 through C6 levels. The fusion plate appears well seated. Disc spacers are seen at C4-C5 and C5-C6. No findings of hardware failure or hardware loosening are seen. Focal degenerative change is seen involving the C1-C2 interface anteriorly. Partial fusion can be seen of the C2-C3 level, including the facet joints. There is at least moderate disc space narrowing seen at C3-C4, with prominent facet hypertrophy seen on the right. At C6-C7, there is at least moderate disc space narrowing seen, with associated facet hypertrophy, left worse than right. Minimal anterolisthesis is seen at this level. No displaced fractures are seen. No suspicious lytic or blastic lesions are seen. Soft tissues: Prevertebral soft tissues are normal in thickness. No paravertebral hematomas. No apical pneumothoraces. IMPRESSION: No amador acute abnormality can be seen. Unremarkable C4 through C6 fixation hardware. Multiple levels of underlying cervical spine degenerative change can be seen, which are overall worst at the C6-C7 level. If it would be helpful for clinical management decision making, please consider a dedicated cervical spine MRI for further evaluation (assuming that there is no contraindication). Dictated by: Dimitri Purcell M.D. on 11/14/2023 at 11:20 Approved by: Dimitri Purcell M.D. on 11/14/2023 at 11:23
--- NOTE | 2023-11-14 10:45 | PT.IIE ---
Current Diagnoses Other spondylosis with radiculopathy, lumbar region (11/13/23) Spinal stenosis, lumbar region without neurogenic claudication (11/13/23) Arthrodesis status (11/13/23) Surgery Performed Operation Date: 11/13/23 08:45 Actual Procedures p L4-5, L5-S1 TLIF with posterior instrumentation -Robot - Melvina Rodriguez MD Surgical History (Last Updated 11/04/23 @ 09:02 by Shannon Lennon RN) History of mandibular surgery History of orthopedic surgery (2016) History of orthopedic surgery (2018) History of total right knee replacement (09/2014) Hx of fusion of cervical spine (07/15/23) S/P epidural steroid injection Medical History (Last Reviewed 07/16/23 @ 07:51 by Kalpesh Barroso PA-C) Acid reflux CAD (coronary artery disease) Cervical spinal stenosis Hearing loss History of cardioversion (12/2022) MEI (obstructive sleep apnea) PAF (paroxysmal atrial fibrillation) (~2017) Presence of Watchman left atrial appendage closure device (~06/2021) Seasonal allergies Thrombophilia Physical Therapy Inpatient Evaluation/Re-Eval M1 PT/OT-IP Prior Functional Status Start: 11/14/23 09:08 Freq: NEEDED Status: Active Protocol: Document 11/14/23 08:31 [facility] (Rec: 11/14/23 10:45 [facility] [id number]) Medical Review Prior Functional Status Medical History Reviewed Yes Diet/Fluid Consistency Regular Communication WNLs Mobility and Gait Occ uses cane or RW d/t right LE changes and lack of ROM after many surgeries. 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 He states that she does not have to use an AD but has memory, other cognitive and compliance challenges and needs 24 hour care. Her daughter is looking after her while he is in the hospital Social History Household Members spouse Living Arrangements House Number of Floors (Floors) Two Floors Number of Stairs To Enter/Railing? 4 steps with 2 rails to enter and flight of steps with left rail ascend to second floor Home Environment High Toilet,Walk in Shower Home Equipment Front Wheel Walker,Straight Cane,Production Boring Machine Operator,Sock Aid,Grab Bars In Shower Employment Status Retired Additional Social History Comment Bidet M2 PT-IP Current Condition Start: 11/14/23 09:08 Freq: NEEDED Status: Active Protocol: Document 11/14/23 08:31 [facility] (Rec: 11/14/23 10:45 MB [id number]) Physical Therapy Current Condition Current Condition Evaluation Date 11/14/23 Treatment Diagnosis L4-5, L5-S1 fusion M3 PT-IP Subjective Start: 11/14/23 09:08 Freq: NEEDED Status: Active Protocol: Document 11/14/23 08:31 [facility] (Rec: 11/14/23 10:45 MB [id number]) Subjective Physical Therapy Visit Type Type Initial Evaluation Visit Start Time 08:31 Visit Stop Time 09:02 Number of FILM DEVELOPING MACHINE OPERATOR Visits 0 Physical Therapy Visit Comments Patient Comments Pt is feeling better today and is ready to get OOB. Therapy Pain Assessment Pain When Pain Assessed At Rest Pain Present Pain Present Pain Reported Location Back Intensity 5 Scale Used Numeric (0 - 10) Description Acute Pain Management Techniques Apply Cold,Modification of Treatment,Re-positioning, Timing of Activity with Medications M4 PT-IP Mobility and Gait Start: 11/14/23 09:08 Freq: NEEDED Status: Active Protocol: Document 11/14/23 08:31 [facility] (Rec: 11/14/23 10:45 MB [id number]) PT-Bed Mobility Assessment Rolling Type of Rolling Roll to Right Level of Assist Contact Guard Assistance,1 Person Assistance Supine to Sit Supine to Sit Contact Guard Assistance,1 Person Assistance,Head of Bed Elevated Scooting Scooting to Edge of Bed Contact Guard Assistance PT-Transfer Assessment Sit to and From Stand Sit to and from Stand Contact Guard Assistance,1 Person Assistance,Use of Upper Extremities Equipment Transfer Assistive Device Front Wheeled Walker Transfers Transfer Destination Chair Transfer Technique Ambulation Transfer Ability Level of Assist Contact Guard Assistance,1 Person Assistance,Use of Upper Extremities Comments Mobility Comments Pt mobilizes well. He does not have much AROM right knee after many surgeries and his back dressing has fallen off and this is noted as he gets up and nsg arrives to redress. Pt's BP is pretty stable. LUE BP and HR: supine 118/67, 74; standing 122/77, 98; standing 1' 119/83, 89; standing 2' 136/73, 85. Gait Assessment Gait Gait Assistance Required: Standby Assistance,Contact Guard Assist,1 Person Assist Distance (Feet) 100 Able to Maintain Weight Bearing Status Yes During Gait Assistive Devices Assistive Device Front Wheeled Walker Orthotic/Prosthetic Devices or Brace: No Gait Deviations General Gait Pattern Antalgic,Decreased Stride Length Factors Limiting Gait Function Factors Limiting Gait Function Pain Comments Gait Comments Pt gait trains 100'x2 with RW and reports pain does mildly increase with gait but he is eager to move. He is interested in rollator to walk with outside as his gait pattern is pretty good as far as reciprocal gait and foot clearance with the RW and he states he has to swing out his right leg without AD and PT ed pt that this can be provocative for his sacral area and back. Pt is receptive to education Stair Climbing Assessment Evaluation Level of Assist On Stairs Contact Guard Assistance,1 Person Assistance Devices Stair Climbing Assistive Devices Left Railing,Right Railing Technique/Endurance Stair Climbing Direction Ascend and Descend Stair Climbing Technique Step Over Step Number of Steps Climbed 3 Query Text: Stair Climbing Set # Repetitions (reps) 1 PT-Balance Assessment Sitting Balance and Reactions Static Sitting Balance Ability Good Dynamic Sitting Balance Ability Good Standing Balance and Reactions Static Standing Balance Ability Good Dynamic Standing Balance Ability Good Device Used RW M5 PT-IP Objective Assessments Start: 11/14/23 09:08 Freq: NEEDED Status: Active Protocol: Document 11/14/23 08:31 [facility] (Rec: 11/14/23 10:45 MB [id number]) Orientation Orientation/Cognition Level of Alertness Alert Orientation Name,Age,Birthday,Month,Date, Year,Day of Week,Place, Situation Language Function Ability No Deficits Noted Safety Awareness Understands Safety Issues Memory Description No Deficits Noted Gross Range of Motion Lower Extremity ROM Assessment Right Impaired Impairments R knee changes Strength Lower Extremity Strength Assessment Right Impaired Knee Right knee changes Ankle Functional Sensation Assessment Sensation Gross Sensation WNL M6 PT-IP Treatment Start: 11/14/23 09:08 Freq: NEEDED Status: Active Protocol: Document 11/14/23 08:31 [facility] (Rec: 11/14/23 10:45 MB [id number]) Physical Therapy Treatment Education Education Provided Precautions,Post-Op Packet, Safety M7 PT-IP Assessment and Plan Start: 11/14/23 09:08 Freq: NEEDED Status: Active Protocol: Document 11/14/23 08:31 [facility] (Rec: 04/04/24 10:45 MB [id number]) PT Summary Assessment and Plan Potential Rehabilitation Potential Excellent Status of Condition at Evaluation Stable Summary Impairments Pain,ROM,Strength,Balance,Bed Mobility,Transfers,Gait, Activity Tolerance Progress Towards Goals Progressing Toward Goals Assessment Summary Pt is a pleasant gentleman who is moving well post-op lumbar fusion last date. He reports a fall recently d/t his right leg not clearing a step. He has chronic right leg, balance and gait challenges s/p many right knee surgeries. Pt reports a swing out pattern with right leg when he does not use AD and so a lot of training about better gait pattern helping back and mobility at d/c. Recommend 2WRW inside (he has) and try rollator here to see if he would like on to use outside at d/c to help with gait quality and exercise. Pt is receptive. He will also benefit from more step training given many steps at home. Goals Bed Mobility Goal Independent Transfer Goal Independent,Front Wheeled Walker,Four Wheeled Walker Gait Goal Independent,Front Wheel Walker ,Four Wheel Walker Gait Distance 200 Other Goals Pt will ascend and descend 12 steps with left rail ascend/ right rail descend and cane opposite hand with mod I. Days to Meet Goals 2 Frequency of Treatment Frequency Of Treatment Twice a Day Treatment Plan Physical Therapy Treatment Plan Bed Mobility Training,Transfer Training,Gait Training, Therapeutic Exercise,Balance Retraining,Post Op Education, Discharge Planning,Hot or Cold Pack,Neuromuscular Re-ed, Coordination Retraining,Manual Therapy Other Recommendations and Next Treatment Try rollator Focus Stair training Precautions Lumbar Precautions Log Roll,No Twisting,Limit Bending,Lifting Restriction of 10 lbs,Gait Belt above Incisional Area Weight Bearing Status Weight Bearing Status Weight Bear as Tolerated Recommendations To Nursing Amount of Assist Needed Standby Assistance,1 Person Assist Discharge Recommendations PT Discharge Recommendations Home with Assistance, Outpatient PT Transportation Needs at Discharge Private Vehicle
--- NOTE | 2023-11-14 11:08 | CM.DANOTE ---
Initial DCP Assessment Visit Note Reviewed EMR and team rounds for pt's medical status and updates. Met with pt at beside to introduce self and role, pt was found to be alert/oriented, sitting upright in his recliner and able to discuss needs/preferences for d/c. Payor: [employer] Attending: Dr. Rodriguez Pt is a 68 year-old M post-op day 1 from his TLIF surgery. 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 His 2-children are planning to stay with him over the next few days after d/c in order to assist with is care, as well as his 's. He has hired cg's for 2-hours per day following the first week, and feels that he has enough coverage to get through the post-op recovery phase at home. He denies the need for Home Health at this time. Plan is to d/c home tomorrow following working with therapies. His children will transport him home, as well as to his post-op Ortho appt. in 2-weeks. He expresses having all necessary DME in the home for post-op recovery needs. DCP will continue to follow for any further evolving needs, however none are anticipated at this time. Discharge Planning/Care Management CM Discharge Assessment Start: 11/14/23 11:05 Freq: Status: Active Protocol: Document 11/14/23 11:06 DPL (Rec: 11/14/23 11:07 DPL [id number]) Discharge Planning Assessment Assigned Women Nurse RUBIA Montaño Advance Directives? No History Provided By Patient,Medical Record Has Patient been admitted in last 30 No days? Prior Living Arrangements House Household Members spouse Type of transporation used prior to Drives own vehicle admit Independent with ADL's Yes Is patient alert and oriented? Yes Caregiver for Another Yes: Pt's has Parkinson's dementia. DME Already Rented / Owned FWW / Walker,Cane Patient/Family Preference OP PT Therapy Barriers to Discharge No Discharge Plan Home Transportation Arrangement Family Referrals Initiated None needed Whiteboard Updated in Patient Room with Yes name and ext. # of Women Nurse Review Status In Process Please Provide Date Initial DC 11/14/23 Assessment Was Performed Pre-Anesthesia Assessment Start: 11/04/23 08:46 Freq: Status: Complete Protocol: Document 11/04/23 08:46 [facility] (Rec: 11/04/23 09:19 CAB [id number]) Pre-Anesthesia Assessment Preferred Name Keith Patient Information Reviewed Via Phone Assessment Assessment Completed With Patient Diagnostic Results BMP/CMP,CBC Comment Outside labs/EKG scanned Primary Care Provider Chele Wright Seen Specialist in Last 12 Months Yes Specialist Seen Class B Truck Driver,Orthopedist Primary Language Namibian Preferred Language Namibian Engine Turner Required No Height 175.26 cm Weight 111.13 kg Body Mass Index (BMI) 36.1 Hearing Ability Hearing Impaired Visual Assist Magnifying Glass Dentition Type Teeth, Natural Present,Partial - Upper Barriers to Learning None Hx Anesthesia Reactions No Hx Family Anesthesia Reaction No Hx Malignant Hyperthermia No Hx Blood Transfusions No Anesthesia Review Requested No Social Media Developer No alcohol intake former Smoking Status Never smoker Substance Use Type does not use Pain Present Pain Reported Musculoskeletal Symptoms Abnormal Gait,Amputation, Difficulty Walking,Joint Pain, Neck Pain,Numbness,Radiating Pain into Limb,Tingling History of Falling (Recent or History of Yes ) Comment Prior to SI fusion Patient is completely paralyzed or No completely immobile Mental Status Oriented to own ability Is patient on oxygen? No Does patient have RICHARDSON/SOB No Hx Sleep Apnea Yes: [place] after weight loss, no CPAP CPAP/BIPAP use not prescribed Currently Taking a Beta [place] Yes: Metoprolol Hx Chest Pain No Hx SOB No Hx Syncope or Dizziness No Anti-Coagulant Therapy Yes: ASA 81mg Has a Class B Truck Driver Yes: Last visit 10/14/[address]. Aranda @ [facility] Cardiac Testing No Hx Pacemaker/ICD No Pacemaker Rep Required? No Cardiac Clearance Received Not Applicable Comment Watchman device implant Additional comment Active - swimming aerobics, walking 3-4 miles daily, cardiac records scanne Diet Type At Home Regular Dysphagia No Gastrointestinal Symptoms Reflux Chronic UTI No Urinary Catheter Present No Hx Urinary Self Catheterization No Diabetes No Hx Drug Resistant Organism No Presence of External or Internal Medical Yes: Cardiac watchman, knee, Devices SI joint pins, right facial pins, neck fusion Received a COVID vaccine? Yes Received all doses? Yes Marital Status Lives With spouse Patient Discharge Plan Description Return Home Comment Pt advised 2 day length of stay per surgeon Feels Safe in Current Environment Yes Been Physically Hurt or Threatened By a No Person in Current Environment Do you have thoughts of harming yourself None or others? Are you currently considering suicide? No Do you have a plan to hurt yourself or No Plan others? Do You Have Any Spiritual Beliefs That No May Affect Your HC Choices? Do You Have Any Cultural Practices That No May Affect Your HC Choices? Comment Gnosticist Who Can We Speak to About Patient's Care Family, friends Identifying Code for Release of Patient Declines to issue Information Health Care Proxy/Next of Kin Brina () Health Care Proxy Emergency Contact Name Brina () Emergency Contact Advance Directives? No Power of Director [facility] No PAC Instructions Durable medical equipment, Medications to take/avoid, Nasal antibiotic,No ETOH/ petroleum product on skin DOS, NPO,Post-op transportation,Pre -surgical wash,Sensory aids, Sturdy shoes/comfortable clothes,Do not bring valuables and remove jewelry
[2023-11-14 12:00] VITALS: BP 129/66; PULSE 78; RESP 18; TEMP 37; O2SAT 96
[2023-11-14] MEDS: METOPROLOL ER 50 MG TABLET PO (12:00)
--- NOTE | 2023-11-14 13:33 | PT-IP ANOTE ---
Pt reports increase pain this afternoon and thought he over did it with PT this morning. If PT has time will check in later this afternoon or tomorrow morning.
[2023-11-14 16:00] VITALS: BP 126/62; PULSE 71; RESP 18; TEMP 36.4; O2SAT 98
[2023-11-14] MEDS: ATORVASTATIN 20 MG TABLET 40 MG PO (18:12)
[2023-11-14 20:00] VITALS: BP 116/71; PULSE 71; RESP 16; TEMP 36.6; O2SAT 96
[2023-11-14] MEDS: cephALEXin 250 MG CAPSULE 500 MG PO (21:15)
[2023-11-14] MEDS: SENNOSIDES 8.6 MG TABLET 17.2 MG PO (21:15)
[2023-11-14] MEDS: MONTELUKAST 10 MG TABLET PO (21:15)
[2023-11-15] MEDS: ACETAMINOPHEN 325 MG TABLET 650 MG PO ×2 (00:38→08:29)
[2023-11-15] MEDS: OXYCODONE IR 10 MG TABLET PO ×4 (00:39→11:40)
[2023-11-15] MEDS: PANTOPRAZOLE DR 20 MG TABLET PO (05:13)
--- NOTE | 2023-11-15 07:25 | PM.DS.1 ---
History of Present Illness History of Present Illness Date Patient Seen: 11/15/23 Time Patient Seen: 07:25 Chief complaint: INPT Narrative: Procedure: 1. L4-5, L5-S1 Postero-lateral and posterior interbody fusion 2. L4-5, L5-S1 interbody cage placement. 3. L4-5, L5-S1 decompressive laminectomy with bilateral facetecomies 4. L4-5, L5-S1 Posterior segmental instrumentation 5. [place] of bone marrow from iliac crest 6. Utilization of microsurgical technique and operating microscope 7. Utilization of robotic assisted navigation Same procedure as scheduled: Yes Indications: Patient has been having chronic back pain and worsening lumbar radiculopathy. Patient has an MRI showing significant degenerative disc foraminal stenosis and facet arthropathy causing significant back pain as well as radiculopathy in bilateral lower extremity. Patient failed multiple conservative management with worsening pain weakness and numbness in his lower extremity. Patient has been having difficulty performing activity of daily living. After discussing risks benefits of treatment options, patient elected proceed with surgery. Surgeon: Melvina Rodriguez Nuts And Bolts Assembler: Nirmala Mead Click Yes if Unassisted: No Anesthesia Type: General Operative Notes Closure Type: primary Prosthetic devices, grafts, tissues, transplants, or devices: Globus CREO MIS screws, Rise cages Applied: catheter Estimated Blood Loss (mL): 150 Blood products transfused: none Discharge Providers Provider Date of admission: 11/13/23 07:34 Discharge Date: 11/15/23 Primary care physician: Chele Wright MD Consults: 11/13/23 13:40 Consult to Occupational Therapy Evaluate & Treat Comment: Physician Instructions: Evaluate and treat Consult to Physical Therapy Evaluate & Treat Comment: Physician Instructions: Evaluate and Treat 11/14/23 07:02 Consult to Discharge Planning Routine Comment: Pt would like [facility] for homegoing; hope to d/c 11/14 Discharge provider: Marco Hudson PA-C Summary Hospital Course Discharge Diagnosis: Status post lumbar fusion with instrumentation. Hospital Course: Multi-modal pain control. Physical therapy. U/S of bilateral lower extremities to rule out DVTs. Status at Discharge Cognitive/behavioral status at discharge: oriented Functional status at discharge: uses cane/walker Overall status at discharge: patient is back to baseline Time Spent with Patient Time spent: Less than 30 minutes Exam Vital Signs (past 8 hours): Oxygen Delivery Method Room Air Oxygen Flow Rate 0 Narrative Exam Narrative: Patient is found sitting comfortably in his chair. He states that he has had new onset of pain behind both of his legs since last night. He is also has consistent lower back pain since surgery. Says has been able to work with physical therapy and ambulate throughout to the hospital floor. Patient has pain along posterior thighs bilaterally. No signs of warmth or erythema noted. Sensation grossly intact to light palpation throughout the bilateral lower extremities. Patient is able to actively dorsiflex and plantarflex against resistance at the ankles. Objective Imaging Venous US: Radiologist's impression: Right: The common femoral, femoral, popliteal, and the visualized calf veins are normally compressible, and free of intraluminal thrombus. The distal right femoral vein is not well visualized. Color and pulse Doppler demonstrate normal phasic intravascular flow. There is normal augmentation response to distal compression maneuver. Left: The common femoral, femoral, popliteal, and the visualized calf veins are normally compressible, and free of intraluminal thrombus. Color and pulse Doppler demonstrate normal phasic intravascular flow. There is normal augmentation response to distal compression maneuver. IMPRESSION: No findings of deep venous thrombosis in either lower extremity. Labs 11/14/23 06:10 [facility] Medical History PAF (paroxysmal atrial fibrillation) (~2017) CAD (coronary artery disease) Thrombophilia Cervical spinal stenosis Acid reflux Seasonal allergies MEI (obstructive sleep apnea) Hearing loss History of cardioversion (12/2022) Presence of Watchman left atrial appendage closure device (~06/2021) Surgical History (Updated 11/14/23 @ 06:57 by Nirmala Mead PA-C) Hx of fusion of cervical spine (07/15/23) History of mandibular surgery History of total right knee replacement (09/2014) S/P epidural steroid injection History of orthopedic surgery (2018) History of orthopedic surgery (2017) Social History household members: spouse Smoking Status: Never smoker alcohol intake: former Discharge Assessment & Plan Assessment and Plan Assessment: Status post lumbar fusion with instrumentation. Plan of Treatment: Ultrasound of lower extremities bilaterally were negative for DVT. Patient is able to discharge home with family. Patient is prescribed oxycodone 5 mg take 1 tablet every 4 hours as needed for postoperative pain. Weightbearing as tolerated use walker for assistance. Follow-up in 2 weeks with S&O for wound check. Discharge Plan Discharge Plan Patient Disposition: Home Discharge orders & Medications Prescriptions: Continued atorvastatin 40 mg Tablet 40 mg PO QPM metoprolol succinate 50 mg Tablet Extended Release 24 Hr 50 mg PO DAILY cephalexin 500 mg Capsule 500 mg PO BID montelukast 10 mg Tablet 10 mg PO BEDTIME omeprazole 20 mg Tablet,Delayed Release (Dr/Ec) 20 mg PO DAILY acetaminophen 325 mg Tablet 650 mg PO Q6H PRN (Reason: Fever/Mild Pain (1-3)) Qty: 60 0RF Discontinued aspirin 81 mg Tablet,Delayed Release (Dr/Ec) 81 mg PO DAILY ibuprofen 200 mg Tablet 800 mg PO DAILY PRN (Reason: Pain) Follow up/Referrals: Chele Wright MD [Primary Care Provider] - Melvina oRdriguez MD [Physician] - 11/29/23 11:30 am (Follow up w/ Kaleb Hudson PA-C, at [facility] office in [place].) Diet/Activity/Treatments Diet: Diet as Tolerated Activity: No deep bending or twisting at the waist. No lifting more than 10 pounds. Skin/Wound/Dressing Care Report to your healthcare provider any signs of infection, such as:: chills, fever, night sweats, unusual drainage and unusual redness Dressing: May shower. Keep dressing as dry as possible. If dressing becomes wet or dirty, may remove and replace with clean, dry gauze. No bathing or otherwise soaking incisions. Do not apply any creams, lotions, or ointments to incisions. Visit Report/Discharge Packet Instructions: Opioid Use Disorder, How to Prevent Falls, DI for Prescription Opioid Use, DI for Transforaminal Lumbar Interbody Fusion Stand Alone Forms: Patient Portal/API, Stroke Signs & Symptoms Discharge Data Primary Care Provider: Chele Wright Quality VTE Deep Vein Thrombosis/Pulmonary Embolism Present on Admission: No
--- NOTE | 2023-11-15 07:42 | DI.US.S_ITS ---
PROCEDURE: US PERIPH VENOUS LOW EXTREM BI INDICATIONS: r/o DVT TECHNIQUE: Real-time imaging, as well as color and pulse Doppler interrogation, were performed of the deep veins of both legs from the inguinal ligament to the popliteal fossa, with documentation of the visualized calf veins. COMPARISON: None. FINDINGS: Right: The common femoral, femoral, popliteal, and the visualized calf veins are normally compressible, and free of intraluminal thrombus. The distal right femoral vein is not well visualized. Color and pulse Doppler demonstrate normal phasic intravascular flow. There is normal augmentation response to distal compression maneuver. Left: The common femoral, femoral, popliteal, and the visualized calf veins are normally compressible, and free of intraluminal thrombus. Color and pulse Doppler demonstrate normal phasic intravascular flow. There is normal augmentation response to distal compression maneuver. IMPRESSION: No findings of deep venous thrombosis in either lower extremity. Approved by: Jamel Demarco M.D. on 11/15/2023 at 8:22
[2023-11-15 08:00] VITALS: BP 129/69; PULSE 80; RESP 16; TEMP 36.6; O2SAT 97
[2023-11-15 08:34] VITALS: BP 129/67; PULSE 80
[2023-11-15] MEDS: METOPROLOL ER 50 MG TABLET PO (08:34)
[2023-11-15] MEDS: cephALEXin 250 MG CAPSULE 500 MG PO (08:35)
--- NOTE | 2023-11-15 08:40 | PT.IPTN ---
Current Diagnoses Other spondylosis with radiculopathy, lumbar region (11/13/23) Spinal stenosis, lumbar region without neurogenic claudication (11/13/23) Arthrodesis status (11/13/23) Surgery Performed Operation Date: 11/13/23 08:45 Actual Procedures p L4-5, L5-S1 TLIF with posterior instrumentation -Robot - Melvina Rodriguez MD Physical Therapy Treatment Note M2 PT-IP Current Condition Start: 11/14/23 09:08 Freq: NEEDED Status: Active Protocol: Document 11/14/23 08:31 MB (Rec: 11/14/23 10:45 MB [id number]) Physical Therapy Current Condition Current Condition Evaluation Date 11/14/23 Treatment Diagnosis L4-5, L5-S1 fusion M3 PT-IP Subjective Start: 11/14/23 09:08 Freq: NEEDED Status: Active Protocol: Document 11/15/23 10:10 TS (Rec: 11/15/23 10:18 TS [id number]) Subjective Physical Therapy Visit Type Type Treatment Note Visit Start Time 08:40 Visit Stop Time 09:04 Number of ENGINE PILOT Visits 1 Physical Therapy Visit Comments Patient Comments Pt is agreeable to PT. Therapy Pain Assessment Pain When Pain Assessed At Rest Pain Present Pain Present Pain Reported M4 PT-IP Mobility and Gait Start: 11/14/23 09:08 Freq: NEEDED Status: Active Protocol: Document 11/15/23 10:10 TS (Rec: 11/15/23 10:18 TS [id number]) PT-Transfer Assessment Comments Mobility Comments STS from chair SBA with 4WW. pt ambulated ~250' with 4WW with a step thru gait. He performed steps x6 with B handrail SBA, pt had no buckling or LOB. Pt ambulated back to room, declined bed mobility at this time. Pt was left in chair, all needs met. Gait Assessment Gait Gait Assistance Required: Standby Assistance Distance (Feet) 250 Able to Maintain Weight Bearing Status Yes During Gait Assistive Devices Assistive Device 4 Wheeled Walker Gait Deviations General Gait Pattern Antalgic,Decreased Stride Length Comments Gait Comments See mobility comments Stair Climbing Assessment Evaluation Level of Assist On Stairs Contact Guard Assistance,1 Person Assistance Devices Stair Climbing Assistive Devices Left Railing,Right Railing Technique/Endurance Stair Climbing Direction Ascend and Descend Stair Climbing Technique Step Over Step Number of Steps Climbed 6 Stair Climbing Set # Repetitions (reps) 1 PT-Balance Assessment Sitting Balance and Reactions Static Sitting Balance Ability Good Dynamic Sitting Balance Ability Good Standing Balance and Reactions Static Standing Balance Ability Good Dynamic Standing Balance Ability Good Device Used RW M5 PT-IP Objective Assessments Start: 11/14/23 09:08 Freq: NEEDED Status: Active Protocol: Document 11/14/23 08:31 MB (Rec: 11/14/23 10:45 MB [id number]) Orientation Orientation/Cognition Level of Alertness Alert Orientation Name,Age,Birthday,Month,Date, Year,Day of Week,Place, Situation Language Function Ability No Deficits Noted Safety Awareness Understands Safety Issues Memory Description No Deficits Noted Gross Range of Motion Lower Extremity ROM Assessment Right Impaired Impairments R knee changes Strength Lower Extremity Strength Assessment Right Impaired Knee Right knee changes Ankle Functional Sensation Assessment Sensation Gross Sensation WNL M6 PT-IP Treatment Start: 11/14/23 09:08 Freq: NEEDED Status: Active Protocol: Document 11/15/23 10:10 TS (Rec: 11/15/23 10:18 TS [id number]) Physical Therapy Treatment Education Education Provided Precautions,Post-Op Packet, Safety M7 PT-IP Assessment and Plan Start: 11/14/23 09:08 Freq: NEEDED Status: Active Protocol: Document 11/15/23 10:10 TS (Rec: 11/15/23 10:18 TS [id number]) PT Summary Assessment and Plan Potential Rehabilitation Potential Excellent Summary Impairments Pain,ROM,Strength,Balance,Bed Mobility,Transfers,Gait, Activity Tolerance Progress Towards Goals Progressing Toward Goals Assessment Summary Ben is making good progress with his mobility. He progressed his gait to ~250' SBA with 4WW. He performed steps x6 SBA with B handrails, had no buckling or LOB. He demonstrates good awareness of his spinal precautions with mobility. PT is recommending home with assist. Goals Bed Mobility Goal Independent Transfer Goal Independent,Front Wheeled Walker,Four Wheeled Walker Gait Goal Independent,Front Wheel Walker ,Four Wheel Walker Gait Distance 200 Other Goals Pt will ascend and descend 12 steps with left rail ascend/ right rail descend and cane opposite hand with mod I. Days to Meet Goals 2 Frequency of Treatment Frequency Of Treatment Twice a Day Treatment Plan Physical Therapy Treatment Plan Bed Mobility Training,Transfer Training,Gait Training, Therapeutic Exercise,Balance Retraining,Post Op Education, Discharge Planning,Hot or Cold Pack,Neuromuscular Re-ed, Coordination Retraining,Manual Therapy Precautions Lumbar Precautions Log Roll,No Twisting,Limit Bending,Lifting Restriction of 10 lbs,Gait Belt above Incisional Area Weight Bearing Status Weight Bearing Status Weight Bear as Tolerated Recommendations To Nursing Amount of Assist Needed Standby Assistance Discharge Recommendations PT Discharge Recommendations Home with Assistance, Outpatient PT Transportation Needs at Discharge Private Vehicle
--- NOTE | 2023-11-15 11:21 | CM.DPC ---
DCP Cont. Reviewed EMR and team rounds for status updates. Pt is now medically cleared for d/c, he has arranged for transport and understands his Ortho f/u instructions and f/u appt time. No further DCP needs indicated at this time.
== END 2023-11-15 13:00 | disposition home or self-care (01) | DRG 455 ==
PROVIDERS: Admitting Provider Orthopaedic Surgery Orthopaedic Surgery of the Spine; PCP Family Medicine; Referring Provider Orthopaedic Surgery Orthopaedic Surgery of the Spine; Visit Provider Orthopaedic Surgery Orthopaedic Surgery of the Spine
PROC: 0SG00AJ Fusion of Lumbar Vertebral Joint with Interbody Fusion Device, Posterior Approach, Anterior Column, Open Approach (ICD-10-PCS; principal; 2023-11-13 08:45)
DX: M47.26 Other spondylosis with radiculopathy, lumbar region (principal); M47.27 Other spondylosis with radiculopathy, lumbosacral region; M43.16 Spondylolisthesis, lumbar region; M51.36 Other intervertebral disc degeneration, lumbar region; M48.061 Spinal stenosis, lumbar region without neurogenic claudication; M48.07 Spinal stenosis, lumbosacral region; M54.2 Cervicalgia; K21.9 Gastro-esophageal reflux disease without esophagitis; I25.10 Atherosclerotic heart disease of native coronary artery without angina pectoris; I10 Essential (primary) hypertension
CPT/HCPCS: 36415; 72100; 72125; 76000; 85014; 85018; 93970; 97116; 97161; 97165; 97530; 97535; C1713; C9290; J0171; J0330; J1100; J1170; J1885; J2250; J2405; J2704; J3010; J3410